=== PATIENT | male | born 1990 | race African-American/Black ===

== ENCOUNTER 2020-06-15 21:13 | Inpatient (IN) | payer OTHER ==
[~2020-06-15] VITALS: Ht 182.9 cm; Wt 79.0 kg
[2020-06-15 21:52] LABS: BASO % 0.5 % (0.0-1.0); EOS # 0.1 10^3/uL (0.0-0.5); EOS % 1.8 % (0.0-3.0); HEMATOCRIT 42.3 % (42.0-52.0); HEMOGLOBIN 14.3 g/dl (13.5-17.5); LYMPH # 2.7 10^3/uL (1.5-5.0); LYMPH % 44.4 % (24.0-44.0); MEAN CORPUSCULAR HEMOGLOBIN 30.9 pg (27.0-33.0); MEAN CORPUSCULAR HGB CONC 33.8 g/dl (32.0-36.5); MEAN CORPUSCULAR VOLUME 91.4 fl (80.0-96.0); MONO # 0.4 10^3/uL (0.0-0.8); MONO % 6.4 % (2.0-8.0); NEUTROPHILS # 2.8 10^3/uL (1.5-8.5); NEUTROPHILS % 46.6 % (36.0-66.0); PLATELET COUNT, AUTOMATED 332 10^3/uL (150-450); RED BLOOD COUNT 4.63 10^6/uL (4.30-6.10); WHITE BLOOD COUNT 6.1 10^3/uL (4.0-10.0)
[2020-06-15 22:29] LABS: ACETAMINOPHEN LEVEL < 2.0 UG/ML (10.0-30.0); ALBUMIN 4.1 GM/DL (3.2-5.2); ALT/SGPT 25 U/L (12-78); BILIRUBIN,DIRECT 0.4 MG/DL (0.0-0.2); BILIRUBIN,TOTAL 1.6 MG/DL (0.2-1.0); BLOOD UREA NITROGEN 10 MG/DL (7-18); CARBON DIOXIDE LEVEL 26 MEQ/L (21-32); CHLORIDE LEVEL 106 MEQ/L (98-107); CPK CREATINE PHOSPHOKINASE 234 U/L (39-308); CREATININE FOR GFR 1.28 MG/DL (0.70-1.30); ETHYL ALCOHOL (ETHANOL) 0.116 % (0.000-0.010); GLOMERULAR FILTRATION RATE > 60.0 (>60); GLUCOSE, FASTING 81 MG/DL (70-100); POTASSIUM SERUM 3.7 MEQ/L (3.5-5.1); SODIUM LEVEL 143 MEQ/L (136-145); THYROID STIMULATING HORMONE 0.895 uIU/ML (0.358-3.740); TOTAL PROTEIN 7.2 GM/DL (6.4-8.2)
[2020-06-15 22:30] LABS: SALICYLATE LEVEL < 1.7 MG/DL (5.0-30.0)
[2020-06-15 22:46] LABS: AMPHETAMINES LEVEL URINE NEGATIVE (NEGATIVE); BARBITURATES URINE NEGATIVE (NEGATIVE); BENZODIAZEPINES URINE NEGATIVE (NEGATIVE); CANNABINOIDS URINE NEGATIVE (NEGATIVE); COCAINE METABOLITE URINE NEGATIVE (NEGATIVE); METHADONE URINE NEGATIVE (NEGATIVE); OPIATES URINE NEGATIVE (NEGATIVE); PHENCYCLIDINE URINE NEGATIVE (NEGATIVE)
[2020-06-16] MEDS ORDERED: MAALOX 30 ML SUSP *UDC PO PRN (03:30)
[2020-06-16] MEDS ORDERED: LORazepam 2 MG TAB PO PRN (03:30)
[2020-06-16] MEDS ORDERED: MOM 30ML SUSPENSION UDC PO PRN (03:30)
[2020-06-16] MEDS ORDERED: DOXY-259 PO (03:48)
[2020-06-16] MEDS ORDERED: VITMTA PO (03:48)
[2020-06-16] MEDS ORDERED: FISH1000 PO (03:48)
[2020-06-16 05:02] VITALS: BP 129/86
--- NOTE | 2020-06-16 08:07 | ECGEPIP ---
[facility] - ED Test Date: 2020-06-15 Pat Name: STEFFANIE RODAS Department: Room: [place] [address] Gender: Male High Tension Tester: Tobin CAMACHO : 1990 Requested By: Dequan Joe Order Number: [id number] Reading MD: Dequan Draper Measurements Intervals Mission Rate: 75 P: 70 OR: 198 QRS: 64 QRSD: 86 T: 52 QT: 378 QTc: 422 Interpretive Statements Normal sinus rhythm POSSIBLE INCOMPLETE RIGHT BUNDLE BRANCH BLOCK NO PRIORS FOR COMPARISON Electronically Signed on 06-16-2020 8:06:52 EDT by Dequan Draper
[2020-06-16] MEDS: MULTIVITAMINS/MINERALS THERAP 1 TAB PO SCH (08:56)
[2020-06-16] MEDS: THIAMINE 100 MG TAB PO SCH ×2 (08:56→20:58)
[2020-06-16] MEDS: FOLIC ACID 1 MG TAB PO SCH (08:56)
[2020-06-16] MEDS: NICOTINE 14 MG/24 HR TRANSDERMAL TD SCH (08:57)
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
[2020-06-16] MEDS ORDERED: FLUoxetine 10 MG CAP PO ONE (11:00)
[2020-06-16 16:28] VITALS: BP 132/79
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
[2020-06-16] MEDS: traZODone 50 MG TAB PO PRN (20:58)
[2020-06-16 21:00] VITALS: BP 138/70
[2020-06-17 06:24] VITALS: BP 113/56
[2020-06-17] MEDS ORDERED: FLUoxetine 10 MG CAP PO SCH (09:00)
[2020-06-17] MEDS: THIAMINE 100 MG TAB PO SCH ×2 (09:18→21:00)
[2020-06-17] MEDS: FOLIC ACID 1 MG TAB PO SCH (09:19)
[2020-06-17] MEDS: NICOTINE 14 MG/24 HR TRANSDERMAL TD SCH (09:19)
[2020-06-17] MEDS: MULTIVITAMINS/MINERALS THERAP 1 TAB PO SCH (09:19)
[2020-06-17] MEDS ORDERED: LORazepam 1 MG TAB PO PRN (14:05)
--- NOTE | 2020-06-17 17:43 | MHIPN ---
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 Patient was in [place] for 8 months. He came back. 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 Recently his father , which is added stress to him. He overdosed on Mucinex, six pills, to kill himself. Patient currently is depressed. He does not have any suicidal thoughts. Complains of poor appetite and low energy. MENTAL STATUS EXAMINATION: Casually dressed with clean clothes, cooperative. Made good eye contact. Psychomotor activity is normal. Speech rate, rhythm, volume are good. Thought process linear, goal directed. Thought content: Denied any suicidal or homicidal ideas. Perception: No auditory or visual hallucinations. Insight and judgment are fair. Impulse control is questionable. VITAL SIGNS: Temperature 97.3, pulse 58, respirations 18, blood pressure 113/56, pulse oximetry 97. LABORATORY DATA: CBC within normal limits. CMP within normal limits. Toxicology: His alcohol was 0.116. DIAGNOSES: 1. Depressive disorder, unspecified, rule out major depressive disorder. 2. Posttraumatic stress disorder. 3. Panic disorder without agoraphobia. PLAN: Increase his Prozac to 20 mg once daily and decrease his lorazepam 1 mg every 6 hours as needed. ESTIMATED LENGTH OF STAY: 3-4 days. TIME SPENT: 25 minutes.
[2020-06-17 18:19] VITALS: BP 140/69
[2020-06-18 06:00] VITALS: BP 127/59
[2020-06-18 06:26] VITALS: BP 127/59
[2020-06-18] MEDS: FLUoxetine 20 MG CAP PO SCH (08:28)
[2020-06-18] MEDS: THIAMINE 100 MG TAB PO SCH ×2 (08:28→21:01)
[2020-06-18] MEDS: MULTIVITAMINS/MINERALS THERAP 1 TAB PO SCH (08:28)
[2020-06-18] MEDS: NICOTINE 14 MG/24 HR TRANSDERMAL TD SCH (08:28)
[2020-06-18] MEDS: FOLIC ACID 1 MG TAB PO SCH (08:29)
--- NOTE | 2020-06-18 13:44 | MHIPNPDOC ---
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 Patient was in [place] for 8 months. He came back. 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 Recently his father , which is added stress to him. He overdosed on Mucinex, six pills, to kill himself. Patient currently is depressed. He does not have any suicidal thoughts. Complains of poor appetite and low energy.Interacting well with the staff. MENTAL STATUS EXAMINATION: Casually dressed with clean clothes, cooperative. Made good eye contact. Psychomotor activity is normal. Speech rate, rhythm, volume are good. Thought process linear, goal directed. Thought content: Denied any suicidal or homicidal ideas. Perception: No auditory or visual hallucinations. Insight and judgment are fair. Impulse control is questionable. LABORATORY DATA: CBC within normal limits. CMP within normal limits. Toxicology: His alcohol was 0.116. DIAGNOSES: 1. Depressive disorder, unspecified, rule out major depressive disorder. 2. Posttraumatic stress disorder. 3. Panic disorder without agoraphobia. PLAN: Increase his Prozac to 20 mg once daily and decrease his lorazepam 1 mg every 6 hours as needed. The adjustment of medication has helped to large extent ESTIMATED LENGTH OF STAY: 3-4 days. TIME SPENT: 25 minutes. HISTORY: . Vital Signs Vital Signs Date Time Temp Pulse Resp B/P (MAP) Pulse Ox O2 Delivery O2 Flow Rate FiO2 06/18/20 06:26 98.6 59 16 127/59 (81) 100 Room Air Current Medications Current Medications Medications (Trade) Dose Ordered Sig/Braulio Route PRN Reason Start Time Stop Time Status Last Admin Dose Admin Acetaminophen (Tylenol Tab) 650 mg Q6HP PRN PO HEADACHE or DISCOMFORT 06/16/20 03:30 Al Hydrox/Mg Hydrox/Simethicone (Mylanta) 30 ml Q4HP PRN PO HEARTBURN/INDIGESTION 06/16/20 03:30 Fluoxetine HCl (PROzac) 10 mg QAM PO 06/17/20 09:00 06/17/20 14:02 DC 06/17/20 09:18 Fluoxetine HCl (PROzac) 20 mg QAM PO 06/18/20 09:00 06/18/20 08:28 Folic Acid (Folic Acid) 1 mg DAILY PO 06/16/20 09:00 06/18/20 08:29 Home Med (Med Rec Complete!) ASDIRECTED XX 06/16/20 03:50 06/16/20 04:16 DC Lorazepam (Ativan) 1 mg ASDIRECTED PRN PO SEE PROTOCOL 06/17/20 14:05 Lorazepam (Ativan) 2 mg ASDIRECTED PRN PO SEE PROTOCOL 06/16/20 03:30 06/17/20 14:05 DC Magnesium Hydroxide (Milk Of Magnesia) 30 ml DAILYPRN PRN PO CONSTIPATION 06/16/20 03:30 Multivitamins (Theragram-M) 1 tab DAILY PO 06/16/20 09:00 06/18/20 08:28 Nicotine (Nicoderm Cq 14mg) 1 patch DAILY TD 06/16/20 09:00 06/18/20 08:28 Thiamine HCl (Thiamine HCl) 100 mg BID PO 06/16/20 09:00 06/19/20 08:59 06/18/20 08:28 Trazodone HCl (Desyrel) 50 mg QHSP PRN PO INSOMNIA 06/16/20 03:30 06/16/20 20:58 Allergies Coded Allergies: tramadol (Verified Adverse Reaction, Mild, nausea, 06/15/20) WILLIAM HART MD Jun 18, 2020 13:44
[2020-06-18 16:07] VITALS: BP 128/58
[2020-06-18 16:08] VITALS: BP 128/58
[2020-06-18] MEDS: ACETAMINOPHEN TAB 650MG DOSE (2X325MG) PO PRN (17:17)
[2020-06-19 06:53] VITALS: BP 125/58
[2020-06-19] MEDS: NICOTINE 14 MG/24 HR TRANSDERMAL TD SCH (09:12)
[2020-06-19] MEDS: FOLIC ACID 1 MG TAB PO SCH (09:12)
[2020-06-19] MEDS: MULTIVITAMINS/MINERALS THERAP 1 TAB PO SCH (09:12)
[2020-06-19] MEDS: FLUoxetine 20 MG CAP PO SCH (09:12)
[2020-06-19] MEDS: TRIAMCINOLONE ACET 0.1% CREAM 15 GM TOP PRN (14:35)
[2020-06-19 16:03] VITALS: BP 132/74
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
[2020-06-20] MEDS: ACETAMINOPHEN TAB 650MG DOSE (2X325MG) PO PRN (08:44)
[2020-06-20] MEDS: FLUoxetine 20 MG CAP PO SCH (08:44)
[2020-06-20] MEDS: MULTIVITAMINS/MINERALS THERAP 1 TAB PO SCH (08:44)
[2020-06-20] MEDS: FOLIC ACID 1 MG TAB PO SCH (08:44)
[2020-06-20] MEDS: NICOTINE 14 MG/24 HR TRANSDERMAL TD SCH (08:44)
[2020-06-20] MEDS: TRIAMCINOLONE ACET 0.1% CREAM 15 GM TOP PRN (09:55)
[2020-06-20 16:55] VITALS: BP 132/71
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
[2020-06-20] MEDS: traZODone 50 MG TAB PO PRN (22:06)
[2020-06-21 06:12] VITALS: BP 146/89
[2020-06-21] MEDS: FLUoxetine 20 MG CAP PO SCH (08:25)
[2020-06-21] MEDS: MULTIVITAMINS/MINERALS THERAP 1 TAB PO SCH (08:25)
[2020-06-21] MEDS: FOLIC ACID 1 MG TAB PO SCH (08:25)
[2020-06-21] MEDS: NICOTINE 14 MG/24 HR TRANSDERMAL TD SCH (08:26)
--- NOTE | 2020-06-21 15:31 | MHIPNPDOC ---
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 Patient was in [place] for 8 months. He came back. 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 Recently his father , which is added stress to him. He overdosed on Mucinex, six pills, to kill himself. Patient currently is depressed. He does not have any suicidal thoughts. .Interacting well with the staff. MENTAL STATUS EXAMINATION: Casually dressed with clean clothes, cooperative. Made good eye contact. Psychomotor activity is normal. Speech rate, rhythm, volume are good. Thought process linear, goal directed. Thought content: Denied any suicidal or homicidal ideas. Perception: No auditory or visual hallucinations. Insight and judgment are fair. Impulse control is questionable. LABORATORY DATA: CBC within normal limits. CMP within normal limits. Toxicology: His alcohol was 0.116. DIAGNOSES: 1. Depressive disorder, unspecified, rule out major depressive disorder. 2. Posttraumatic stress disorder. 3. Panic disorder without agoraphobia. PLAN: Increase his Prozac to 20 mg once daily and decrease his lorazepam 1 mg every 6 hours as needed. The adjustment of medication has helped to large extent ESTIMATED LENGTH OF STAY: 3-4 days. TIME SPENT: 25 minutes. HISTORY: . Vital Signs Vital Signs Date Time Temp Pulse Resp B/P (MAP) Pulse Ox O2 Delivery O2 Flow Rate FiO2 06/21/20 06:12 98.0 62 18 146/89 (108) 99 Room Air Current Medications Current Medications Medications (Trade) Dose Ordered Sig/Braulio Route PRN Reason Start Time Stop Time Status Last Admin Dose Admin Acetaminophen (Tylenol Tab) 650 mg Q6HP PRN PO HEADACHE or DISCOMFORT 06/16/20 03:30 06/20/20 08:44 Al Hydrox/Mg Hydrox/Simethicone (Mylanta) 30 ml Q4HP PRN PO HEARTBURN/INDIGESTION 06/16/20 03:30 Fluoxetine HCl (PROzac) 10 mg QAM PO 06/17/20 09:00 06/17/20 14:02 DC 06/17/20 09:18 Fluoxetine HCl (PROzac) 20 mg QAM PO 06/18/20 09:00 06/21/20 08:25 Folic Acid (Folic Acid) 1 mg DAILY PO 06/16/20 09:00 06/21/20 08:25 Home Med (Med Rec Complete!) ASDIRECTED XX 06/16/20 03:50 06/16/20 04:16 DC Lorazepam (Ativan) 1 mg ASDIRECTED PRN PO SEE PROTOCOL 06/17/20 14:05 06/19/20 12:10 DC Lorazepam (Ativan) 2 mg ASDIRECTED PRN PO SEE PROTOCOL 06/16/20 03:30 06/17/20 14:05 DC Magnesium Hydroxide (Milk Of Magnesia) 30 ml DAILYPRN PRN PO CONSTIPATION 06/16/20 03:30 Multivitamins (Theragram-M) 1 tab DAILY PO 06/16/20 09:00 06/21/20 08:25 Nicotine (Nicoderm Cq 14mg) 1 patch DAILY TD 06/16/20 09:00 06/21/20 08:26 Thiamine HCl (Thiamine HCl) 100 mg BID PO 06/16/20 09:00 06/19/20 08:59 DC 06/18/20 21:01 Trazodone HCl (Desyrel) 50 mg QHSP PRN PO INSOMNIA 06/16/20 03:30 06/20/20 22:06 Triamcinolone Acetonide (Kenalog 0.1% Cream) 1 dose BIDP PRN TOP ACNE 06/19/20 09:45 06/20/20 09:55 Allergies Coded Allergies: tramadol (Verified Adverse Reaction, Mild, nausea, 06/15/20) WILLIAM HART MD Jun 21, 2020 15:31
[2020-06-21 17:56] VITALS: BP 136/64
[2020-06-21] MEDS: traZODone 50 MG TAB PO PRN (21:43)
[2020-06-22 06:36] VITALS: BP 142/56
[2020-06-22] MEDS ORDERED: FLUO20CA22 PO (08:11)
[2020-06-22] MEDS: FOLIC ACID 1 MG TAB PO SCH (08:28)
[2020-06-22] MEDS: MULTIVITAMINS/MINERALS THERAP 1 TAB PO SCH (08:28)
[2020-06-22] MEDS: FLUoxetine 20 MG CAP PO SCH (08:28)
[2020-06-22] MEDS: NICOTINE 14 MG/24 HR TRANSDERMAL TD SCH (08:29)
[2020-06-22] MEDS: TRIAMCINOLONE ACET 0.1% CREAM 15 GM TOP PRN (09:19)
--- NOTE | 2020-06-22 10:31 | MHDS ---
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 The patient was in [place] for 8 months, came back. When he was here, he was going through a lot of stress. His father . 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 He was order 6 pills of Mucinex. For details of history of present illness, past psychiatric history, personal history, medical history, family history, please refer to the initial evaluation COURSE IN THE HOSPITAL: The patient initially was depressed, was isolative. He was placed on Prozac, which was titrated upwards. He also receive individual group and Milieu therapy. He started attending groups and activities. He started sleeping better. His depression resolved. Denies any suicidal or homicidal ideas. Denies any side effect of the medication. He was stable at the time of discharge. MENTAL STATUS EXAMINATION: Neatly dressed, cooperative, made good eye contact. Psychomotor activity is normal. Speech, rate, rhythm, volume are good. Thought process: Linear and goal directed. Thought content; denied any suicidal or homicidal ideas. Perception: No auditory or visual hallucinations. Insight and judgment are good. PLAN: Discharge him home. He will be followed up at [facility]. Vital signs: Temperature is 98.1, pulse is 53, respiratory rate is 20, blood pressure 142/56. LABORATORY DATA: Complete blood count (CBC) within normal limits. Comprehensive metabolic panel (CMP) within normal limits. Toxicology was negative. DIAGNOSIS:Major depressive disorder DISCHARGE MEDICATIONS: Prozac 20 mg once daily. Time spent is less than 30 minutes. MTDD
== END 2020-06-22 11:10 | disposition home or self-care (01) | DRG 881 ==
LOC: M ED 21:13 → M ED INP 06-16 03:26 → M PSY 06-16 05:00
PROVIDERS: ADMIT Psychiatry & Neurology Psychiatry; ATTEND Psychiatry & Neurology Psychiatry
DX: F32.9 Major depressive disorder, single episode, unspecified (principal); R45.851 Suicidal ideations; Z79.899 Other long term (current) drug therapy; Z88.8 Allergy status to other drugs, medicaments and biological substances

== ENCOUNTER 2020-07-06 21:52 | Emergency (ER) | payer OTHER ==
[~2020-07-06] VITALS: Ht 182.9 cm; Wt 79.5 kg
[~2020-07-06 21:52] MED LIST: DOXY-259 PO; FISH1000 PO; FLUO20CA22 PO; VITMTA PO
[2020-07-06] MEDS ORDERED: HYDR50TA30 PO (22:57)
[2020-07-06 23:32] LABS: HEMATOCRIT 42.9 % (42.0-52.0); HEMOGLOBIN 14.3 g/dl (13.5-17.5); MEAN CORPUSCULAR HEMOGLOBIN 30.5 pg (27.0-33.0); MEAN CORPUSCULAR HGB CONC 33.3 g/dl (32.0-36.5); MEAN CORPUSCULAR VOLUME 91.5 fl (80.0-96.0); PLATELET COUNT, AUTOMATED 314 10^3/uL (150-450); RED BLOOD COUNT 4.69 10^6/uL (4.30-6.10); WHITE BLOOD COUNT 6.2 10^3/uL (4.0-10.0)
[2020-07-06 23:56] LABS: AMPHETAMINES LEVEL URINE NEGATIVE (NEGATIVE); BARBITURATES URINE NEGATIVE (NEGATIVE); BENZODIAZEPINES URINE NEGATIVE (NEGATIVE); CANNABINOIDS URINE NEGATIVE (NEGATIVE); COCAINE METABOLITE URINE NEGATIVE (NEGATIVE); METHADONE URINE NEGATIVE (NEGATIVE); OPIATES URINE NEGATIVE (NEGATIVE); PHENCYCLIDINE URINE NEGATIVE (NEGATIVE)
[2020-07-07 00:13] LABS: ACETAMINOPHEN LEVEL < 2.0 UG/ML (10.0-30.0); ALBUMIN 4.1 GM/DL (3.2-5.2); ALT/SGPT 25 U/L (12-78); BILIRUBIN,DIRECT 0.3 MG/DL (0.0-0.2); BILIRUBIN,TOTAL 1.4 MG/DL (0.2-1.0); BLOOD UREA NITROGEN 12 MG/DL (7-18); CALCIUM LEVEL 9.1 MG/DL (8.5-10.1); CARBON DIOXIDE LEVEL 31 MEQ/L (21-32); CHLORIDE LEVEL 106 MEQ/L (98-107); ETHYL ALCOHOL (ETHANOL) < 0.003 % (0.000-0.010); GLOMERULAR FILTRATION RATE > 60.0 (>60); GLUCOSE, FASTING 91 MG/DL (70-100); POTASSIUM SERUM 4.1 MEQ/L (3.5-5.1); SALICYLATE LEVEL < 1.7 MG/DL (5.0-30.0); SODIUM LEVEL 141 MEQ/L (136-145); TOTAL PROTEIN 7.4 GM/DL (6.4-8.2)
[2020-07-07] MEDS ORDERED: FLUoxetine 20 MG CAP PO SCH (09:00)
[2020-07-07 18:23] LABS: HEMOGLOBIN A1c 5.3 %
[2020-07-07 18:36] LABS: CHOLESTEROL RISK RATIO 2.732 (<5)
[2020-07-07 18:59] LABS: RSV AMPLIFICATION NEGATIVE (NEGATIVE)
--- NOTE | 2020-07-07 20:21 | ECGEPIP ---
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
[2020-07-07] MEDS ORDERED: NICOTINE 21MG/24HR 1 EA TRANSDERMAL TD ONE (20:30)
[2020-07-07 22:02] VITALS: BP 126/59
== END 2020-07-07 22:05 ==
LOC: M ED 21:52
DX: R45.851 Suicidal ideations (principal); F32.9 Major depressive disorder, single episode, unspecified; F17.200 Nicotine dependence, unspecified, uncomplicated; Z79.899 Other long term (current) drug therapy; Z88.5 Allergy status to narcotic agent

== ENCOUNTER 2020-08-26 10:51 | Inpatient (IN) | payer OTHER ==
[~2020-08-26] VITALS: Ht 188 cm; Wt 77.0 kg
[~2020-08-26 10:51] MED LIST changes: +HYDR50TA30 PO
[2020-08-26] MEDS ORDERED: TRAZ-257 PO (11:09)
[2020-08-26 11:37] LABS: HEMATOCRIT 45.1 % (42.0-52.0); HEMOGLOBIN 15.1 g/dl (13.5-17.5); MEAN CORPUSCULAR HEMOGLOBIN 30.4 pg (27.0-33.0); MEAN CORPUSCULAR HGB CONC 33.5 g/dl (32.0-36.5); MEAN CORPUSCULAR VOLUME 90.7 fl (80.0-96.0); PLATELET COUNT, AUTOMATED 357 10^3/uL (150-450); RED BLOOD COUNT 4.97 10^6/uL (4.30-6.10); WHITE BLOOD COUNT 5.4 10^3/uL (4.0-10.0)
[2020-08-26 12:13] LABS: ACETAMINOPHEN LEVEL < 2.0 UG/ML (10.0-30.0); ALBUMIN 4.5 GM/DL (3.2-5.2); ALT/SGPT 29 U/L (12-78); BILIRUBIN,DIRECT 0.4 MG/DL (0.0-0.2); BILIRUBIN,TOTAL 1.6 MG/DL (0.2-1.0); BLOOD UREA NITROGEN 10 MG/DL (7-18); CALCIUM LEVEL 9.6 MG/DL (8.5-10.1); CARBON DIOXIDE LEVEL 30 MEQ/L (21-32); CHLORIDE LEVEL 105 MEQ/L (98-107); CREATININE FOR GFR 1.22 MG/DL (0.70-1.30); ETHYL ALCOHOL (ETHANOL) 0.005 % (0.000-0.010); GLOMERULAR FILTRATION RATE > 60.0 (>60); GLUCOSE, FASTING 83 MG/DL (70-100); SALICYLATE LEVEL < 1.7 MG/DL (5.0-30.0); SODIUM LEVEL 138 MEQ/L (136-145); THYROID STIMULATING HORMONE 0.285 uIU/ML (0.358-3.740); TOTAL PROTEIN 7.8 GM/DL (6.4-8.2)
[2020-08-26 12:22] LABS: AMPHETAMINES LEVEL URINE NEGATIVE (NEGATIVE); BARBITURATES URINE NEGATIVE (NEGATIVE); BENZODIAZEPINES URINE NEGATIVE (NEGATIVE); CANNABINOIDS URINE NEGATIVE (NEGATIVE); COCAINE METABOLITE URINE NEGATIVE (NEGATIVE); METHADONE URINE NEGATIVE (NEGATIVE); OPIATES URINE NEGATIVE (NEGATIVE); PHENCYCLIDINE URINE NEGATIVE (NEGATIVE)
[2020-08-26] MEDS ORDERED: HYDR50CA2 PO (12:53)
[2020-08-26] MEDS ORDERED: TRAZ-252 PO (12:53)
[2020-08-26] MEDS ORDERED: FLUO10CA16 PO (12:53)
[2020-08-26] MEDS ORDERED: [UNRECOGNIZED DRUG - OTHER] TOP (12:53)
[2020-08-26 14:29] LABS: RSV AMPLIFICATION NEGATIVE (NEGATIVE)
[2020-08-26] MEDS ORDERED: traZODone 50 MG TAB PO PRN (16:35)
[2020-08-26] MEDS ORDERED: MOM 30ML SUSPENSION UDC PO PRN (16:35)
[2020-08-26] MEDS ORDERED: MAALOX 30 ML SUSP *UDC PO PRN (16:35)
[2020-08-26] MEDS ORDERED: NICOTINE 21MG/24HR 1 EA TRANSDERMAL TD ONE (17:00)
[2020-08-26] MEDS: traZODone 50 MG TAB PO SCH (21:33)
[2020-08-27 06:00] VITALS: BP 155/76
[2020-08-27] MEDS: MULTIVITAMINS/MINERALS THERAP 1 TAB PO SCH (08:38)
[2020-08-27] MEDS: ACETAMINOPHEN TAB 650MG DOSE (2X325MG) PO PRN (08:39)
[2020-08-27] MEDS ORDERED: FLUoxetine 10 MG CAP PO SCH (09:00)
[2020-08-27] MEDS: NICOTINE 21MG/24HR 1 EA TRANSDERMAL TD SCH (09:09)
[2020-08-27] MEDS: buPROPion (WELLBUTRIN SR) 100 MG SR TAB PO SCH ×2 (09:51→21:18)
--- NOTE | 2020-08-27 10:14 | MHHPEPDOC ---
General Date Of Admission: Aug 26, 2020 Legal Status: 9.39 Chief Complaint "I am feeling lost, hopeless, worthless and depressed and don't know what to do. History of Present Illness HISTORY OF THE PRESENT ILLNESS: Patient is a 30 -year-old , male, who [had 1 previous inpatient admission in June and currently following up at behavioral health unit. 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 Patient stated that he is going to be discharged on Sunday and is feeling very lost and feeling worthless and more depressed and was having vague suicidal thoughts. He denies any recent cocaine use. Denies any psychotic symptoms. Denies any active suicidal plan or intent, but was not feeling better and feeling more depressed with the upcoming discharge. 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 Psychiatric Review of Systems Depression (2 or more weeks): depressed mood, feelings of worthlesness, dec reased energy, suicidal thoughts Nedra (4 or more days of): denies Psychosis: denies PTSD: denies Anxiety: situational anxiety, stressor related anxiety Past Psychiatric History Previous Psychiatric Diagnosis: . Depressive disorder Previous Psychiatric Admissions: . Admission in June 2020 Suicide Attempts: . Took overdose of cough medicine Psychiatric Follow-up: . Attends counseling Psychiatric medications: . Was taking Prozac 30 mg Past Medical History Medical Problems Denies any major medical issues Head Injury: No Seizures: No Hospitalizations: No Surgeries: No Family Medical/Psychiatric HX Medical Problems Noncontributory Psychiatric Disorders: No Addiction: No Suicide Attemps/Completions: No Addiction History denies (used cocaine recreationally and denies being addicted to admission. Tox screen is negative) Social History Childhood: . Born in [place]. Parents are alive, has 1 sister Abuse/Trauma:. Denies any history of abuse Current Living Situation: [place] Education: . High school Employment: . Been in active duty for 2 years Social Support: ., Not much Legal: . No legal history. Single Marital: ., Never Mental Status Examination General Appearance: appears stated age Build: thin Demeanor: average Eye Contact: average Activity: average Behavior: cooperative Speech: clear, spontaneous, low in volume Mood: depressed, anxious Mood Depression since the he was notified of the discharge from the service Thought Process: logical/linear Thought Content (Delusions): none reported Thought Content (Other): none reported Thought Content (Aggressive): none reported Perception (Hallucinations): none reported Perception (Other): none reported Cognition (Impairment of): none reported Cognition(Intelligence Est.): average Oriented: Awake, Alert, Oriented times three Insight: fair Judgment: Fair Psychosis: Denies Diagnoses Depressive disorder NOS. Rule out adjustment disorder with depressed mood A-FIB/CHADSVASC A-FIB History Current/History of A-Fib/PAF?: No Current PO Anticoag Therapy: No Age/Risk Factor Scoring CHADSVASC: CHADSVASC Response (Comments) Value Gender Risk Factor Male 0 Hx of CHF No 0 Hx of HTN No 0 Hx of Stroke/TIA/or VTE No 0 Hx of Diabetes No 0 Hx of Vascular Disease No 0 Total 0 Assessment Moderate depression primarily due to his situation are stress, which is being discharged from the service against his wish. He does not appear to be acutely suicidal but describing significant anhedonia and loss of energy and concentration, so we will start Wellbutrin SR 100 mg twice a day and discontinue Prozac and continued supportive therapy. Initial Treatment Plan 1. Patient was admitted on a 9.39 status. 2. Complete history was obtained. 3. With patients permission, family will be contacted and database will be expanded. 4. Patients medication regimen will be reviewed and changed accordingly. 5. Patient will be provided with protected environment. 6. Patient will be treated with individual, group, and milieu therapies. 7. Patient will receive supportive psych-education. 8. Discharge planning will commence immediately. 9. Outpatient follow-up treatment will be strongly recommended. 10. The initial treatment plan will focus initially on: * Depression. * Risk for suicide. ESTIMATED LENGTH OF STAY: 3-5 DAYS. TIME SPENT COUNSELING AND COORDINATING INITIAL CARE: 40 minutes. Tobacco Cessation Screen If Patient is a Smoker He does smoke Tobacco Cessation Tx Ordered?: Yes N/A-No Antipsychotics Vital Signs Vital Signs Date Time Temp Pulse Resp B/P (MAP) Pulse Ox O2 Delivery O2 Flow Rate FiO2 08/27/20 06:00 98.7 98 18 155/76 (102) 99 08/26/20 16:51 Room Air Laboratory Data 24H Labs Laboratory Tests 2 08/26/20 11:11: Urine Opiates Screen NEGATIVE, Urine Methadone Screen NEGATIVE, Urine Barbiturates Screen NEGATIVE, Urine Phencyclidine Screen NEGATIVE, Urine Amphetamines Screen NEGATIVE, Urine Benzodiazepines Screen NEGATIVE, Urine Cocaine Metabolite Screen NEGATIVE, Urine Cannabinoids Screen NEGATIVE 08/26/20 11:14: Nucleated Red Blood Cells % (auto) 0.0, Anion Gap 3L, Glomerular Filtration Rate > 60.0, Calcium Level 9.6, Total Bilirubin 1.6H, Direct Bilirubin 0.4H, Aspartate Amino Transf (AST/SGOT) 28, Alanine Aminotransferase (ALT/SGPT) 29, Alkaline Phosphatase 60, Total Protein 7.8, Albumin 4.5, Albumin/Globulin Ratio 1.4, Thyroid Stimulating Hormone (TSH) 0.285L, Salicylates Level < 1.7L, Acetaminophen Level < 2.0L, Ethyl Alcohol Level 0.005 08/26/20 12:59: Coronavirus (COVID-19)(PCR) NEGATIVE, Influenza Type A (RT-PCR) NEGATIVE, Influenza Type B (RT-PCR) NEGATIVE, Respiratory Syncytial Virus (PCR) NEGATIVE CBC/BMP Laboratory Tests 08/26/20 11:14 Medications Scheduled Fluoxetine Hcl (Fluoxetine HCl) 10 Mg Capsule, 30 MG PO DAILY, (Reported) Multivitamins (Thera M Plus Tablet) 1 Each Tablet, 1 TAB PO DAILY, (Reported) Trazodone HCl (Trazodone HCl) 50 Mg Tablet, 100 MG PO QHS, (Reported) 2-3 TABLETS QHS PRN Scheduled PRN Hydroxyzine Pamoate (Hydroxyzine Pamoate) 50 Mg Capsule, 50 MG PO TID PRN for ANXIETY, (Reported) 1-2 TABLETS PRN [Dermatitis Cream] , 1 DOSE TOP BID PRN for REDNESS/IRRITATION, (Reported) APPLY TO FACE AND HEAD Allergies Coded Allergies: tramadol (Verified Adverse Reaction, Mild, nausea, 06/15/20) PARAS WARREN M.D. Aug 27, 2020 10:14
[2020-08-27] MEDS: hydrOXYzine 50 MG TAB PO PRN ×3 (12:47→13:41)
--- NOTE | 2020-08-27 14:03 | HPE ---
HISTORY AND PHYSICAL DATE OF ADMISSION: 08/26/2020 Hospitalist-generated inpatient mental health history and physical. Adirana Hall is seen in inpatient mental health unit [facility] He has expressed no medical concerns or issues. PAST MEDICAL HISTORY: Benign except for posttraumatic stress disorder. FAMILY HISTORY: Had grandparents with diabetes and hypertension. SOCIAL HISTORY: No smoking or alcohol. REVIEW OF SYSTEMS: No chest pain, cough, wheeze, shortness of breath, rectal bleeding, urinary bleeding, or epistaxis. PHYSICAL EXAMINATION: VITAL SIGNS: As listed. HEENT: Unremarkable. LUNGS: Clear. HEART: Without murmur. ABDOMEN: Soft, nontender. No masses. EXTREMITIES: No lymphedema. Normal strength in the arms and legs with distal pulses. IMPRESSION: Medically stable with no current medical problems requiring ongoing hospitalist care.
[2020-08-27 16:09] VITALS: BP 131/66
[2020-08-27] MEDS: traZODone 50 MG TAB PO SCH (21:18)
[2020-08-28 06:16] VITALS: BP 118/60
[2020-08-28] MEDS: buPROPion (WELLBUTRIN SR) 100 MG SR TAB PO SCH ×2 (09:06→21:24)
[2020-08-28] MEDS: MULTIVITAMINS/MINERALS THERAP 1 TAB PO SCH (09:06)
[2020-08-28] MEDS: NICOTINE 21MG/24HR 1 EA TRANSDERMAL TD SCH (09:07)
[2020-08-28 16:17] VITALS: BP 128/59
[2020-08-28] MEDS: hydrOXYzine 50 MG TAB PO PRN (17:36)
[2020-08-28] MEDS: traZODone 50 MG TAB PO SCH (21:24)
[2020-08-28] MEDS: ACETAMINOPHEN TAB 650MG DOSE (2X325MG) PO PRN (21:25)
[2020-08-29 06:08] VITALS: BP 124/58
[2020-08-29] MEDS: MULTIVITAMINS/MINERALS THERAP 1 TAB PO SCH (09:29)
[2020-08-29] MEDS: buPROPion (WELLBUTRIN SR) 100 MG SR TAB PO SCH ×2 (09:29→21:41)
[2020-08-29] MEDS: NICOTINE 21MG/24HR 1 EA TRANSDERMAL TD SCH (09:29)
[2020-08-29 16:21] VITALS: BP 122/59
[2020-08-29] MEDS: traZODone 50 MG TAB PO SCH (21:41)
[2020-08-30 06:39] VITALS: BP 117/58
[2020-08-30] MEDS ORDERED: NICO21PAT TD (08:28)
[2020-08-30] MEDS ORDERED: BUPR10TASR PO (08:28)
[2020-08-30] MEDS ORDERED: TRAZ-252 PO (08:28)
[2020-08-30] MEDS: buPROPion (WELLBUTRIN SR) 100 MG SR TAB PO SCH (08:56)
[2020-08-30] MEDS: NICOTINE 21MG/24HR 1 EA TRANSDERMAL TD SCH (08:56)
[2020-08-30] MEDS: MULTIVITAMINS/MINERALS THERAP 1 TAB PO SCH (08:56)
--- NOTE | 2020-08-30 09:20 | MHDSPDOC ---
[facility] Discharge Summary Discharge Summary DATE OF ADMISSION: Aug 26, 2020 at 16:52 DATE OF DISCHARGE: 08/30/2020 DISCHARGE DIAGNOSES: 1. . Depressive disorder, NOS 2. . REASON FOR ADMISSION: 30-year-old man with a one recent admission, brought to emergency room due to increase in feeling hopeless, worthless, with vague suicidal thoughts. 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 Patient was prescribed Prozac 20 mg and has been in counseling after discharge, but reported persistent depressed mood and feeling worthless and feeling lost and had vague suicidal thoughts. He denies any use of cocaine recently. CONSULTANTS INVOLVED: TREATMENT AND PROGRESS ON THE UNIT : Patient was seen for supportive therapy and his Prozac was discontinued and started on Wellbutrin SR 100 mg twice a day. He is fully cooperated and tolerating medication without any complaint of side effect and maintained good control, and strongly denies any suicidal thoughts.. HOSPITAL COURSE: Patient had uneventful hospital stay. He is tolerating prescribed medication of Wellbutrin without any side effects and reports feeling much more stable and denies any suicidal thoughts. He accepts that he is being discharged from the [employer] and planning to go back to his family and pursue different career. He is denying any psychotic symptoms. He is willing to continue with his antidepressant medicine and is feeling safe to be discharged with follow-up treatment. DISCHARGE ASSESSMENT: Improved, stable and not suicidal MENTAL STATUS EXAMINATION ON DISCHARGE: Patient is a ability-year old male, who is , pleasant and cooperative. Speech is rational, coherent. Language skills are good. Thought processes including: Relevant and productive. Thought content: No suicidal thoughts. Abstract reasoning, and computation: Good. Description of associations: Well-organized. Description of abnormal or psychotic thoughts: None. Judgment: Fair . Insight: Good. Orientation to , well oriented. Recent and remote memory: Without any impairment. Attention span and concentration: Fair. Language: . Fund of knowledge: . Mood: , Mildly anxious but overall euthymic. Affect: , Appropriate. MEDICATIONS ON DISCHARGE: - for ., Wellbutrin 100 mg twice a day for 7 days - for . Nicotine patch 21 mg daily for 7 days, all with 3 refills - for . PLAN/FOLLOWUP ARRANGEMENTS: As arranged by the project planner. The amount of time spent in the coordination of care for this patient was approximately 35 minutes. ETOH/Disorder Med Rx ETOH/DRUG DISORDER RX: N/A Vital Signs/I&Os Vital Signs Date Time Temp Pulse Resp B/P (MAP) Pulse Ox O2 Delivery O2 Flow Rate FiO2 08/30/20 06:39 99.0 68 20 117/58 (77) 98 Room Air Medications Scheduled Bupropion Hcl (Bupropion HCl Sr) 100 Mg Tab.sr.12h, 100 MG PO BID for depression for 7 Days, #14 Multivitamins (Thera M Plus Tablet) 1 Each Tablet, 1 TAB PO DAILY, (Reported) Nicotine (Nicotine Patch) 21 Mg Patch.td24, 1 PATCH TD DAILY for smoke cessation for 7 Days, #7 Trazodone HCl (Trazodone HCl) 50 Mg Tablet, 100 MG PO QHS for sleep for 7 Days, #14 Allergies Coded Allergies: tramadol (Verified Adverse Reaction, Mild, nausea, 06/15/20) PARAS WARREN M.D. Aug 30, 2020 09:20
--- NOTE | 2020-08-30 09:21 | MHIPN ---
[facility] PROGRESS NOTE DATE: 08/28/2020 VITAL SIGNS: Blood pressure 118/60, pulse 50, temperature 98.2. This is a video assessment, he is in the inpatient psychiatry unit, I am at home, he is seen in the presence of staff. CHIEF COMPLAINT: Feels better. SUBJECTIVE: Seen for followup. Indicates has been feeling better, more rested, less depressed, he remains somewhat anxious. Says feels more optimistic. MENTAL STATUS EXAMINATION: Neat, cooperative, no agitation, no psychomotor retardation, he is coherent, affect is of fair range. Denies any suicidal thoughts or intents, no homicidal ideals or intents, no evidence of any psychosis. Cognition grossly intact. Judgment and insight possibly improved. ASSESSMENT: Unspecified depressive disorder. PLAN: Continue current care, observations, including the bupropion, at 100 mg twice a day, which he tolerates well so far. He is to be encouraged to participate in activities in the unit. Further recommendations to be made depending on the clinical picture.
--- NOTE | 2020-08-30 10:13 | MHIPN ---
[facility] PROGRESS NOTE DATE: 08/29/2020 VITAL SIGNS: Blood pressure 124/58, pulse 61, temperature 98. This is a video assessment, he is at the inpatient unit at the hospital, he is seen in the presence of staff, I am at home. CHIEF COMPLAINT: Says feels okay. SUBJECTIVE: Seen for followup. Indicates feels okay, and that he generally had a good night. He says he has been eating okay, and moods have improved, feels less anxious overall. MENTAL STATUS EXAMINATION: Neat and cooperative, no agitation, no psychomotor retardation, he is coherent, affect is restricted but reactive. He denies any thoughts of harming himself or anyone else, currently there is no evidence of any psychosis. Cognition grossly intact, judgment and insight improved. ASSESSMENT: Other specified depressive disorder versus adjustment disorder with depressed mood. PLAN: Continue current care, he is clinically improved, encourage participation in activities in the unit. He will be seeing the assigned clinicians tomorrow, and further recommendations will be made.
== END 2020-08-30 09:00 | disposition home or self-care (01) | DRG 881 ==
LOC: M ED 10:51 → M PSY 16:52 → M ED 16:52 → M PSY 17:09 → UNDOADMIN 17:09 → M PSY 08-28 06:52
PROVIDERS: ADMIT Psychiatry & Neurology Psychiatry; ATTEND Psychiatry & Neurology Psychiatry
DX: F32.9 Major depressive disorder, single episode, unspecified (principal); F43.21 Adjustment disorder with depressed mood; Z79.899 Other long term (current) drug therapy; Z88.8 Allergy status to other drugs, medicaments and biological substances; Z20.822 Contact with and (suspected) exposure to COVID-19